=== PATIENT | female | born 1980 | race Caucasian/White ===

== ENCOUNTER 2019-07-11 06:48 | Emergency (ER) | payer BC ==
[2019-07-11] MEDS ORDERED: KETOROLAC TROMETHAMINE INJ 30 MG/ML VIAL IM ONE (07:06)
[2019-07-11] MEDS ORDERED: predniSONE 20 MG TAB PO ONE (07:06)
--- NOTE | 2019-07-11 07:41 | RAD ---
EXAM DESCRIPTION: Cervical Spine, 2-3 Views CLINICAL HISTORY: 38 years Female, pain rt side neck adj c4-5 after sneeze last night COMPARISON: None. FINDINGS: Three views of the cervical spine show loss of physiologic cervical lordosis. No vertebral body fracture or subluxation. No prevertebral soft tissue swelling or disc space narrowing. The facet joints are anatomically aligned, the spinous processes are intact. IMPRESSION: Loss of physiologic cervical lordosis which may be related to patient positioning, muscle spasm or other soft tissue injury. No additional cervical spine abnormality. Electronically signed by: Augustus Hinton MD 07/11/2019 7:40 AM [facility]
[2019-07-11] MEDS ORDERED: HYDROcodone 5MG/APAP 325MG 1 EA TAB PO ONE (07:48)
[2019-07-11] MEDS ORDERED: CYCLOBENZAPRINE HCL 5 MG TAB PO ONE (07:48)
--- NOTE | 2019-07-11 07:50 | ED.PDOC ---
History of Present Illness - General Chief Complaint: Neck Injury/Pain Stated Complaint: right side shoulder, neck pain radiates to ear Time Seen by Provider: 07/11/19 07:05 Source: patient Exam Limitations: no limitations - History of Present Illness Initial Comments: the patient is a 38-year-old female presenting to the emergency room secondary to right-sided neck pain that started yesterday after sneezing. The patient has palpable muscle spasm immediately adjacent to C3-C5 on the right. She does occasionally get sharp shooting pains down from that towards the shoulder. No other neurological changes. No other trauma. No bruising. No pain over the spinous processes and no pain on the left. The patient will not allow me to put traction on it at this point or do range of motion exercises at this point, due to discomfort. Timing/Duration: other - 14 hours Severity: moderate Improving Factors: immobilization Worsening Factors: movement Associated Symptoms: denies symptoms Allergies/Adverse Reactions: Allergies NO KNOWN ALLERGY Allergy (Verified 07/11/19 07:00) Home Medications: Ambulatory Orders Cyclobenzaprine HCl [Flexeril] 5 mg PO TID PRN #30 tab 07/11/19 predniSONE [Prednisone] 20 mg PO DAILY #7 tab 07/11/19 Review of Systems - Review of Systems Constitutional: States: no symptoms reported EENTM: States: no symptoms reported Respiratory: States: no symptoms reported Cardiology: States: no symptoms reported Gastrointestinal/Abdominal: States: no symptoms reported Genitourinary: States: no symptoms reported Musculoskeletal: States: neck pain Skin: States: no symptoms reported Neurological: States: see HPI Endocrine: States: no symptoms reported Hematologic/Lymphatic: States: no symptoms reported All other Systems: No Change from Baseline Past Medical History (General) - Patient Medical History Hx Seizures: No Hx Stroke: No Hx Dementia: No Hx Asthma: No Hx of COPD: No Hx Cardiac Disorders: No Hx Congestive Heart Failure: No Hx Pacemaker: No Hx Hypertension: No Hx Thyroid Disease: No Hx Diabetes: No Hx Gastroesophageal Reflux: No Hx Renal Disease: No Hx Cancer: No Hx of HIV: No Hx Hepatitis C: No Hx MRSA: No Surgical History: no surgical history - Vaccination History Hx Tetanus, Diphtheria Vaccination: Yes Hx Influenza Vaccination: No - Social History Hx Tobacco Use: No Hx Alcohol Use: Yes - glass of wine daily - Female History Patient : Yes Expected Date of Delivery:: 09/13/15 Hx Gestational Age: 21 Family Medical History - Family History Mother Family History: Unknown Living Status: Unknown Physical Exam - Physical Exam General Appearance: Alert, Other - the patient is obviously uncomfortable Eye Exam: bilateral normal Ears, Nose, Throat: hearing grossly normal, normal pharynx Neck: other - see history of present illness. No step-off. 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 no neurological deficits. X-ray of the cervical spine is reassuring for no significant acute bony pathology. the patient received medications here and will be on prednisone and Flexeril as an outpatient for the next few days. Topical heat in the form of a heat pad, icy hot or Biofreeze may help. Gentle range of motion exercises may also help. If the patient is failing to improve significantly over the next 24-48 hours then a visit to the chiropractor may prove beneficial. ER warnings were given. [email or web address] [email or web address] [id number] Departure - Departure Clinical Impression: Cervical myofascial strain Qualifiers: Encounter type: initial encounter Qualified Code(s): S16.1XXA - Strain of muscle, fascia and tendon at neck level, initial encounter Disposition: Discharge to Home or Self Care Condition: Fair Departure Forms: ED Discharge - Pt. Copy, Patient Portal Self Enrollment Instructions: DI for Cervical Muscle Strain Diet: regular diet Activity: increase activity as tolerated Referrals: Oleg Kelley MD [Primary Care Provider] - 1-2 Weeks Prescriptions: Cyclobenzaprine HCl [Flexeril] 5 mg PO TID PRN #30 tab PRN Reason: Muscle Spasms predniSONE [Prednisone] 20 mg PO DAILY #7 tab Home Medications: Ambulatory Orders Cyclobenzaprine HCl [Flexeril] 5 mg PO TID PRN #30 tab 07/11/19 predniSONE [Prednisone] 20 mg PO DAILY #7 tab 07/11/19 Additional Instructions: the patient is a 38-year-old female presenting to the emergency room secondary to what appears to be acute myofascial strain of the paracervical spinal area on the right. no neurological deficits. X-ray of the cervical spine is reassuring for no significant acute bony pathology. the patient received medications here and will be on prednisone and Flexeril as an outpatient for the next few days. Topical heat in the form of a heat pad, icy hot or Biofreeze may help. Gentle range of motion exercises may also help. If the patient is failing to improve significantly over the next 24-48 hours then a visit to the chiropractor may prove beneficial. ER warnings were given.
[2019-07-11 08:05] VITALS: BP 111/65; TEMP 98.1; O2SAT 98
== END 2019-07-11 08:02 | disposition home or self-care (01) ==
LOC: ER 06:48
DX: S16.1XXA Strain of muscle, fascia and tendon at neck level, initial encounter (principal); X50.9XXA Other and unspecified overexertion or strenuous movements or postures, initial encounter; Y92.9 Unspecified place or not applicable
CPT/HCPCS: 72040; J1885; J7512

== ENCOUNTER 2019-11-13 16:02 | Emergency (ER) | payer BC ==
[2019-11-13] MEDS ORDERED: KETOROLAC TROMETHAMINE INJ 30 MG/ML VIAL IV ONE (16:12)
[2019-11-13] MEDS ORDERED: SODIUM CHLORIDE 0.9% (FLUSH) 10 ML SYG IV PRN (16:13)
--- NOTE | 2019-11-13 16:40 | RAD ---
EXAM DESCRIPTION: Chest,1 View CLINICAL HISTORY: 39 years Female sob COMPARISON: None. FINDINGS: The cardiomediastinal silhouette appears unremarkable. No consolidating infiltrates or pleural effusions. No pneumothorax. IMPRESSION: No acute abnormality is identified. Electronically signed by: Ralph Diaz MD 11/13/2019 4:39 PM CDT
--- NOTE | 2019-11-13 16:44 | ED.PDOC ---
History of Present Illness - General Chief Complaint: Cardiovascular Problem Stated Complaint: Chest pain and tachypnea Time Seen by Provider: 11/13/19 16:09 - History of Present Illness Initial Comments: c/o 7/10 sharp L sided chest pain since 1 week, intermittent , non radiating , no sob or wheezing or fever or chills Allergies/Adverse Reactions: Allergies NO KNOWN ALLERGY Allergy (Verified 11/13/19 16:41) Home Medications: Ambulatory Orders NK 11/13/19 Review of Systems - Review of Systems Constitutional: States: no symptoms reported EENTM: States: no symptoms reported Respiratory: States: no symptoms reported Cardiology: States: see HPI Gastrointestinal/Abdominal: States: no symptoms reported Genitourinary: States: no symptoms reported Musculoskeletal: States: no symptoms reported Skin: States: no symptoms reported Neurological: States: no symptoms reported Endocrine: States: no symptoms reported Hematologic/Lymphatic: States: no symptoms reported Past Medical History (General) - Patient Medical History Hx Seizures: No Hx Stroke: No Hx Dementia: No Hx Asthma: No Hx of COPD: No Hx Cardiac Disorders: No Hx Congestive Heart Failure: No Hx Pacemaker: No Hx Hypertension: No Hx Thyroid Disease: No Hx Diabetes: No Hx Gastroesophageal Reflux: No Hx Renal Disease: No Hx Cancer: No Hx of HIV: No Hx Hepatitis C: No Hx MRSA: No Surgical History: no surgical history - Vaccination History Hx Tetanus, Diphtheria Vaccination: No Hx Influenza Vaccination: No - Social History Hx Tobacco Use: No Hx Alcohol Use: No Hx Substance Use: No Hx Substance Use Treatment: No Hx Depression: No - Female History Patient is a Female of Child Bearing Age (10 -59 yrs old): Yes Patient : No - Pt denies Expected Date of Delivery:: 09/13/15 Hx Gestational Age: 21 Family Medical History - Family History Mother Family History: Unknown Living Status: Unknown Physical Exam - Physical Exam General Appearance: Alert, Comfortable Eyes, Ears, Nose, Throat Exam: PERRL/EOMI, normal ENT inspection Neck: non-tender, full range of motion, supple, normal inspection Respiratory: chest non-tender, lungs clear, normal breath sounds, no respiratory distress, no accessory muscle use Cardiovascular/Chest: regular rate, rhythm, no edema, no JVD, no murmur Extremity: normal range of motion, non-tender, normal inspection, no pedal edema Neurologic: no motor/sensory deficits, alert, normal mood/affect, oriented x 3 Skin Exam: normal color, warm/dry Lymphatic: no adenopathy Progress - Progress Progress: 11/13/19 19:03 Asymptomatic at present - Results/Orders Results/Orders: 11/13/19 16:13 Sodium Chloride 0.9% (Flush) [Saline Flush Syringe] 10 ml IV PRN PRN EKG Stat Pulse Ox Stat 11/13/19 16:36 DRUG OF ABUSE,OVERDOSE PANEL Stat 11/13/19 18:35 URINE DRUG SCREEN, 7 ASSAY Stat Laboratory Results WBC 11.4 K/mm3 (4.8-10.8) H 11/13/19 16:13 RBC 4.52 M/mm3 (4.20-5.40) 11/13/19 16:13 Hgb 13.8 gm/dL (12.0-16.0) 11/13/19 16:13 Hct 41.4 % (36.0-47.0) 11/13/19 16:13 MCV 91.6 fl (81.0-99.0) 11/13/19 16:13 MCH 30.6 pg (27.0-31.0) 11/13/19 16:13 MCHC 33.4 g/dL (33.0-37.0) 11/13/19 16:13 RDW 13.7 % (11.5-14.5) 11/13/19 16:13 Plt Count 284 K/mm3 (130-400) 11/13/19 16:13 MPV 8.5 fl (7.40-10.4) 11/13/19 16:13 Absolute Neuts (auto) 7.40 K/uL (1.8-6.8) H 11/13/19 16:13 Absolute Lymphs (auto) 3.10 K/uL (1.0-3.4) 11/13/19 16:13 Absolute Monos (auto) 0.70 K/uL (0.2-0.8) 11/13/19 16:13 Absolute Eos (auto) 0.10 K/uL (0.0-0.4) 11/13/19 16:13 Absolute Basos (auto) 0.10 K/uL (0.0-0.1) 11/13/19 16:13 Neutrophils % 64.9 % (42.0-78.0) 11/13/19 16:13 Lymphocytes % 27.5 % (20.0-50.0) 11/13/19 16:13 Monocytes % 6.3 % (2.0-9.0) 11/13/19 16:13 Eosinophils % 0.8 % (1.0-5.0) L 11/13/19 16:13 Basophils % 0.5 % (0.0-2.0) 11/13/19 16:13 PT 10.3 SECONDS (9.0-10.9) 11/13/19 16:13 INR 1.04 (0.9-1.15) 11/13/19 16:13 PTT (SP) 21.4 SECONDS (21.8-31.6) L 11/13/19 16:13 D-Dimer, Quantitative < 131 ng/ml (131-400) L 11/13/19 16:13 Sodium 136 mmol/L (135-145) 11/13/19 16:13 Potassium 3.1 mmol/L (3.6-5.0) L 11/13/19 16:13 Chloride 105 mmol/L (101-111) 11/13/19 16:13 Carbon Dioxide 20 mmol/L (21-31) L 11/13/19 16:13 Anion Gap 14.1 (12-18) 11/13/19 16:13 BUN 16 mg/dL (7-18) 11/13/19 16:13 Creatinine 0.71 mg/dL (0.6-1.3) 11/13/19 16:13 BUN/Creatinine Ratio 22.5 (10-20) H 11/13/19 16:13 Random Glucose 123 mg/dL (70-105) H 11/13/19 16:13 Serum Osmolality 274.5 mOsm/L (275-295) L 11/13/19 16:13 Calcium 9.5 mg/dL (8.4-10.2) 11/13/19 16:13 Magnesium 2.0 mg/dL (1.8-2.5) 11/13/19 16:13 Creatine Kinase 79 IU/L (26-140) 11/13/19 16:13 CK-MB (CK-2) 0.7 ng/mL (0.0-4.4) 11/13/19 16:13 CK-MB (CK-2) % Not Reportable 11/13/19 16:13 Troponin I < 0.02 ng/mL (0.01-0.05) 11/13/19 18:15 Salicylates < 4.0 mg/dL (0-29.9) 11/13/19 16:36 Acetaminophen < 10.0 ug/mL (10.0-30.0) L 11/13/19 16:36 Ethyl Alcohol < 5.40 mg/dL (0-79) 11/13/19 16:36 - EKG/XRAY/CT EKG: Sinus Departure - Departure Clinical Impression: Chest pain Time of Disposition: 19:03 Disposition: Discharge to Home or Self Care Condition: Good Departure Forms: ED Discharge - Pt. Copy, Patient Portal Self Enrollment Instructions: DI for Chest Pain Diet: resume usual diet Activity: increase activity as tolerated, walking as tolerated Referrals: Oleg Kelley MD [Primary Care Provider] - 1-2 Weeks Home Medications: Ambulatory Orders NK 11/13/19 Additional Instructions: Return to ER if symptoms gets worse
[2019-11-13 18:23] VITALS: O2SAT 97
[2019-11-13 19:25] VITALS: BP 120/73; TEMP 98.9
== END 2019-11-13 19:25 | disposition home or self-care (01) ==
LOC: ER 16:02
DX: R07.9 Chest pain, unspecified (principal)
CPT/HCPCS: 36415; 71045; 80048; 80307; 80320; 80329; 82550; 82553; 84484; 85025; 85379; 85610; 85730; 93005; J1885; J2060